=== PATIENT | male | born 1955 | race Caucasian/White ===

== ENCOUNTER → 2019-09-21 | Outpatient (CLI) | payer OTHER ==
[2019-09-21 11:22] LABS: ALBUMIN 3.8 g/dL (3.4-5.0); ALKALINE PHOSPHATASE 129 U/L (46-116); ALT/SGPT 34 U/L (16-63); AST/SGOT 18 U/L (15-37); BILIRUBIN TOTAL 0.58 mg/dL (0.20-1.00); CALCIUM 9.1 mg/dL (8.5-10.1); CARBON DIOXIDE 30.9 mmol/L (21-32); CHLORIDE SERUM 105 mmol/L (98-107); CHOLESTEROL 153 mg/dL (<200); CREATININE SERUM 0.7 mg/dL (0.7-1.3); GFR1 > 60 mL/min; GLUCOSE SERUM 258 mg/dL (74-106); POTASSIUM SERUM 4.6 mmol/L (3.5-5.1); SODIUM SERUM 139 mmol/L (136-145); TOTAL PROTEIN, SERUM 7.8 g/dL (6.4-8.2)
[2019-09-21 11:23] LABS: CHOLESTEROL/HDL RATIO 4.6; HDL CHOLESTEROL 33 mg/dL (40-60); TRIGLYCERIDES 224 mg/dL (<150)
[2019-09-21 11:35] LABS: BASOPHIL % 0.4 % (0-2); PLATELET COUNT 183 x10^3mcL (130-400); RED CELL DISTRIBUTION WIDTH 13.5 % (11.5-14.5)
== END | disposition home or self-care (01) ==
LOC: LB 10:35
DX: E11.9 Type 2 diabetes mellitus without complications (principal)

== ENCOUNTER → 2019-10-13 | Outpatient (CLI) | payer OTHER | END | disposition home or self-care (01) | LOC: RD 15:40 | DX: J45.901 Unspecified asthma with (acute) exacerbation (principal) ==

== ENCOUNTER → 2019-12-04 | Outpatient (CLI) | payer OTHER | END | disposition home or self-care (01) | LOC: RD 15:04 | DX: M54.2 Cervicalgia (principal) ==

== ENCOUNTER → 2019-12-12 | Outpatient (CLI) | payer OTHER ==
[2019-12-12 09:42] LABS: ALKALINE PHOSPHATASE 117 U/L (46-116); GAMMA GLUTAMYL TRANSPEPTIDASE 42 U/L (5-85)
== END | disposition home or self-care (01) ==
LOC: US 09:00
PROVIDERS: General Practice
PROC: BW40ZZZ Ultrasonography of Abdomen (ICD-10-PCS; principal; 2019-12-12)
DX: R10.9 Unspecified abdominal pain (principal)
CPT/HCPCS: Q0092